=== PATIENT | male | born 1965 | race Caucasian/White ===

== ENCOUNTER 2019-04-12 12:53 | Inpatient (IN) | payer OTHER ==
[~2019-04-12 12:53] MED LIST: CEFAZOLIN 1 GM INJ; ROCURONIUM 50 MG INJ; SUCCINYLCHOLINE CHLORIDE 100 MG/5 ML SYG IV
[2019-04-12] MEDS ORDERED: SURGIFOAM POWDER 1 GM KIT (15:33)
[2019-04-12] MEDS ORDERED: GELATIN SIZE 100 SPONGE (15:34)
[2019-04-12] MEDS ORDERED: POLYMYXIN/BACITRACIN 1L IRRIG (15:34)
[2019-04-12] MEDS ORDERED: THROMBIN (BOVINE) 5,000 UNIT VIAL TP (15:34)
[2019-04-12] MEDS ORDERED: PROPOFOL 20 ML (15:51)
[2019-04-12] MEDS ORDERED: ONDANSETRON 4 MG INJ (15:51)
[2019-04-12] MEDS ORDERED: ROCURONIUM 50 MG INJ (15:51)
[2019-04-12] MEDS ORDERED: DEXAMETHASONE 4 MG/ML 5 ML INJ (15:51)
[2019-04-12] MEDS ORDERED: NEOSTIGMINE 3 MG/3 ML SYRINGE (15:51)
[2019-04-12] MEDS ORDERED: MIDAZOLAM 1 MG/ML 2 ML INJ (15:51)
[2019-04-12] MEDS ORDERED: CEFAZOLIN 1 GM INJ (15:51)
[2019-04-12] MEDS ORDERED: GLYCOPYRROLATE 0.4 MG INJ (15:51)
[2019-04-12] MEDS ORDERED: IPRATROPIUM (NEB) 0.5 MG/2.5 ML AMP HHN (16:00)
[2019-04-12] MEDS ORDERED: MEPERIDINE 25 MG INJ IV (16:00)
[2019-04-12] MEDS ORDERED: ONDANSETRON 4 MG INJ IV ×2 (16:00→21:00)
[2019-04-12] MEDS ORDERED: OXYCODONE/ACETAMINOPHEN (5/325) TAB PO ×2 (16:00)
[2019-04-12] MEDS ORDERED: DIPHENHYDRAMINE 50 MG INJ IV (16:00)
[2019-04-12] MEDS ORDERED: ALBUTEROL 0.083% (NEB) 2.5 MG/3 ML AMP HHN (16:00)
[2019-04-12] MEDS ORDERED: FENTAnyl 50 MCG/ML VIAL IV ×2 (16:00)
[2019-04-12] MEDS ORDERED: hydrALAzine 20 MG INJ IV (16:00)
[2019-04-12] MEDS ORDERED: MIDAZOLAM 1 MG/ML 2 ML INJ IV (16:00)
[2019-04-12] MEDS ORDERED: EPHEDrine 25 MG/5 ML SYG IV (16:00)
[2019-04-12] MEDS: THROMBIN 5000 UNIT VIAL TOP ×3 (16:00→20:30)
[2019-04-12] MEDS ORDERED: TRIMETHOBENZAMIDE 100 MG/ML VIAL IM (16:00)
[2019-04-12] MEDS ORDERED: HYDROmorphONE 1 MG/5 ML IV SYRINGE IV ×3 (16:00)
[2019-04-12] MEDS: BUPIVACAINE 0.5%/EPI (SDV) 30 ML INJ (17:39)
[2019-04-12] MEDS ORDERED: FENTAnyl 50 MCG/ML VIAL ×2 (19:45→21:32)
[2019-04-12] MEDS ORDERED: SUGAMMADEX SODIUM 200 MG/2 ML VIAL IV (20:53)
[2019-04-12] MEDS ORDERED: AL HYDROX/MG HYDROX/SIMETH 30 ML CUP PO (21:00)
[2019-04-12] MEDS ORDERED: HYDROCODONE/APAP (5/325) TAB PO ×2 (21:00)
[2019-04-12] MEDS ORDERED: PROCHLORPERAZINE 10 MG TAB PO (21:00)
[2019-04-12] MEDS ORDERED: NALOXONE (0.4 MG/ML) INJ IV (21:00)
[2019-04-12] MEDS ORDERED: ACETAMINOPHEN 325 MG TAB PO (21:00)
[2019-04-12] MEDS: HYDROmorphONE 0.2 MG/ML PCA IV (21:18)
[2019-04-12] MEDS: FENTAnyl 50 MCG/ML VIAL IV ×2 (21:41→21:49)
[2019-04-12] MEDS: ACETAMINOPHEN 1000MG/100ML IV 100 ML IVPB (21:41)
[2019-04-12] MEDS ORDERED: oxyCODONE (CR) 10 MG TAB [oxyCONTIN] PO (22:26)
[2019-04-12] MEDS: LIDOCAINE 5% PATCH TD (22:30)
[2019-04-12] MEDS: LABETALOL HCL 20MG INJ IV ×2 (22:31→22:52)
[2019-04-12] MEDS: oxyCODONE (CR) 10 MG TAB [oxyCONTIN] PO (22:34)
[2019-04-12] MEDS: NACL 0.9% 3 ML SYG IV (23:54)
[2019-04-13] MEDS: CEFAZOLIN 1 GM/50 ML (PMX) 50 ML IVPB ×4 (01:01→17:32)
[2019-04-13] MEDS: ACETAMINOPHEN 1000MG/100ML IV 100 ML IVPB ×2 (01:30→07:54)
[2019-04-13] MEDS: HYDROmorphONE 0.2 MG/ML PCA IV ×5 (02:27→18:53)
[2019-04-13 05:11] LABS: HEMATOCRIT 39.3 % (42.0-52.0); HEMOGLOBIN 13.3 g/dl (14.0-18.0)
[2019-04-13 05:48] LABS: ANION GAP 12 (5-13); BLOOD UREA NITROGEN 12 mg/dl (7-20); CALCIUM 8.7 mg/dl (8.4-10.2); CARBON DIOXIDE 27 mmol/L (21-31); CHLORIDE 101 mmol/L (97-110); CREATININE 0.63 mg/dl (0.61-1.24); Estimated GFR > 60 mL/min (>60); GLUCOSE 226 mg/dl (70-220); SODIUM 140 mmol/L (135-144)
[2019-04-13] MEDS ORDERED: DEXAMETHASONE 4 MG/ML 1 ML INJ IV (08:30)
[2019-04-13] MEDS ORDERED: GLUCOSE GEL 15 GRAM TUBE PO ×2 (09:00)
[2019-04-13] MEDS ORDERED: GLUCOSE GEL 15 GRAM TUBE BUCCAL (09:00)
[2019-04-13] MEDS ORDERED: GLUCAGON 1 MG INJ IM (09:00)
[2019-04-13] MEDS: LIDOCAINE 5% PATCH TD (09:00)
[2019-04-13] MEDS ORDERED: DEXTROSE 50% 50 ML SYRINGE IV ×2 (09:00)
[2019-04-13] MEDS ORDERED: oxyCODONE (CR) 10 MG TAB [oxyCONTIN] PO (09:00)
[2019-04-13] MEDS: SOD CHLORIDE 0.9% 1,000 ML IV ×2 (09:02→22:16)
[2019-04-13] MEDS: DOCUSATE SODIUM 100 MG CAP PO ×2 (09:04→20:50)
[2019-04-13] MEDS: LISINOPRIL 10 MG TAB PO (09:04)
[2019-04-13] MEDS: AMLODIPINE 5 MG TAB PO (09:04)
[2019-04-13] MEDS: oxyCODONE (CR) 10 MG TAB [oxyCONTIN] PO (09:05)
[2019-04-13] MEDS: DEXAMETHASONE 4 MG/ML 1 ML INJ IV (09:08)
[2019-04-13] MEDS: INSULIN ASPART [NOVOLOG] 3 ML PEN SC ×3 (10:12→18:59)
[2019-04-13] MEDS: CARISOPRODOL 350 MG TAB PO ×2 (16:58→22:14)
[2019-04-13] MEDS: LORAZEPAM 2 MG INJ IV (18:06)
[2019-04-13] MEDS: ATORVASTATIN 20 MG TAB PO (20:49)
[2019-04-13] MEDS: traZODone 50 MG TAB PO (20:49)
[2019-04-14] MEDS: HYDROmorphONE 0.2 MG/ML PCA IV ×5 (00:09→21:09)
[2019-04-14] MEDS: CARISOPRODOL 350 MG TAB PO ×3 (05:06→21:00)
[2019-04-14 05:22] LABS: ADD MAN DIFF? NO
[2019-04-14 05:33] LABS: WHITE BLOOD COUNT 15.9 10^3/ul (4.8-10.8)
[2019-04-14 05:33] LABS: BASOPHILS % 0.1 % (0.0-2.0); HEMATOCRIT 37.5 % (42.0-52.0); HEMOGLOBIN 12.4 g/dl (14.0-18.0); LYMPHOCYTES # 2.3 10^3/ul (0.8-2.9); LYMPHOCYTES % 14.4 % (15.0-51.0); MEAN CORPUSCULAR HEMOGLOBIN 33.5 pg (29.0-33.0); MEAN CORPUSCULAR HGB CONC 33.1 g/dl (32.0-37.0); MEAN CORPUSCULAR VOLUME 101.4 fl (82.0-101.0); MEAN PLATELET VOLUME 8.9 fl (7.4-10.4); MONOCYTE # 1.3 10^3/ul (0.3-0.9); MONOCYTES % 8.1 % (0.0-11.0); NEUTROPHIL # 12.2 10^3/ul (1.6-7.5); NEUTROPHILS % 76.9 % (39.0-77.0); PLATELET COUNT 248 10^3/UL (140-415); RED CELL DISTRIBUTION WIDTH 11.8 % (11.5-14.5)
[2019-04-14 05:43] LABS: HEMOGLOBIN A1C 5.8 % (0-5.9)
[2019-04-14 06:19] LABS: ANION GAP 11 (5-13); BLOOD UREA NITROGEN 17 mg/dl (7-20); CALCIUM 8.4 mg/dl (8.4-10.2); CARBON DIOXIDE 31 mmol/L (21-31); CHLORIDE 98 mmol/L (97-110); CREATININE 0.73 mg/dl (0.61-1.24); Estimated GFR > 60 mL/min (>60); GLUCOSE 148 mg/dl (70-220); MAGNESIUM 2.1 mg/dl (1.7-2.5); PHOSPHORUS 4.5 mg/dl (2.5-4.9); POTASSIUM 4.5 mmol/L (3.5-5.1); SODIUM 140 mmol/L (135-144)
[2019-04-14] MEDS: INSULIN ASPART [NOVOLOG] 3 ML PEN SC ×3 (07:20→18:08)
[2019-04-14] MEDS: DOCUSATE SODIUM 100 MG CAP PO ×2 (08:46→21:00)
[2019-04-14] MEDS: LISINOPRIL 10 MG TAB PO (08:47)
[2019-04-14] MEDS: AMLODIPINE 5 MG TAB PO (08:47)
[2019-04-14] MEDS: DEXAMETHASONE 10 MG/ML 1 ML INJ IV (08:48)
[2019-04-14] MEDS: SOD CHLORIDE 0.9% 1,000 ML IV (11:10)
[2019-04-14] MEDS: LIDOCAINE 5% PATCH TD (13:18)
[2019-04-14] MEDS: ATORVASTATIN 20 MG TAB PO (21:00)
[2019-04-14] MEDS: traZODone 50 MG TAB PO (22:56)
[2019-04-15] MEDS: HYDROmorphONE 0.2 MG/ML PCA IV ×4 (01:37→16:12)
[2019-04-15] MEDS: CARISOPRODOL 350 MG TAB PO ×3 (05:48→20:27)
[2019-04-15] MEDS: LIDOCAINE 5% PATCH TD ×2 (08:00→17:06)
[2019-04-15] MEDS: INSULIN ASPART [NOVOLOG] 3 ML PEN SC ×3 (08:54→18:49)
[2019-04-15] MEDS: LISINOPRIL 10 MG TAB PO (08:56)
[2019-04-15] MEDS: DOCUSATE SODIUM 100 MG CAP PO ×2 (08:56→20:27)
[2019-04-15] MEDS: AMLODIPINE 5 MG TAB PO (08:56)
[2019-04-15] MEDS ORDERED: HYDROmorphONE 0.5 MG/0.5 ML SYG IV (18:00)
[2019-04-15] MEDS: oxyCODONE (CR) 10 MG TAB [oxyCONTIN] PO (18:45)
[2019-04-15] MEDS: HYDROmorphONE 4 MG TAB PO ×2 (18:45→23:11)
[2019-04-15] MEDS: DEXAMETHASONE 10 MG/ML 1 ML INJ IV (20:27)
[2019-04-15] MEDS: ATORVASTATIN 20 MG TAB PO (20:27)
[2019-04-15] MEDS: traZODone 50 MG TAB PO (20:27)
[2019-04-15] MEDS: LORAZEPAM 0.5 MG TAB PO (23:11)
[2019-04-16] MEDS: oxyCODONE (CR) 10 MG TAB [oxyCONTIN] PO ×2 (01:23→08:28)
[2019-04-16] MEDS: HYDROmorphONE 4 MG TAB PO ×2 (04:04→08:28)
[2019-04-16] MEDS: CARISOPRODOL 350 MG TAB PO (06:34)
[2019-04-16] MEDS: DOCUSATE SODIUM 100 MG CAP PO (08:27)
[2019-04-16] MEDS: AMLODIPINE 5 MG TAB PO (08:29)
[2019-04-16] MEDS: LISINOPRIL 10 MG TAB PO (08:29)
[2019-04-16] MEDS: DEXAMETHASONE 4 MG/ML 1 ML INJ IV (08:29)
[2019-04-16 08:58] LABS: ADD MAN DIFF? NO
[2019-04-16 09:00] LABS: BASOPHILS % 0.1 % (0.0-2.0); HEMATOCRIT 38.7 % (42.0-52.0); LYMPHOCYTES # 1.8 10^3/ul (0.8-2.9); LYMPHOCYTES % 21.5 % (15.0-51.0); MEAN CORPUSCULAR HEMOGLOBIN 33.7 pg (29.0-33.0); MEAN CORPUSCULAR HGB CONC 33.6 g/dl (32.0-37.0); MEAN CORPUSCULAR VOLUME 100.3 fl (82.0-101.0); MEAN PLATELET VOLUME 8.8 fl (7.4-10.4); MONOCYTE # 0.6 10^3/ul (0.3-0.9); NEUTROPHIL # 6.1 10^3/ul (1.6-7.5); NEUTROPHILS % 71.2 % (39.0-77.0); PLATELET COUNT 259 10^3/UL (140-415); RED BLOOD COUNT 3.86 10^6/ul (4.70-6.10); RED CELL DISTRIBUTION WIDTH 11.5 % (11.5-14.5)
[2019-04-16 09:00] LABS: WHITE BLOOD COUNT 8.5 10^3/ul (4.8-10.8)
== END 2019-04-16 10:15 | disposition home or self-care (01) | DRG 473 ==
LOC: REC 12:53 → MS1 23:30
PROC: 0RG20K0 Fusion of 2 or more Cervical Vertebral Joints with Nonautologous Tissue Substitute, Anterior Approach, Anterior Column, Open Approach (ICD-10-PCS; principal; 2019-04-12 15:00)
PROC: 0RR30JZ Replacement of Cervical Vertebral Disc with Synthetic Substitute, Open Approach (ICD-10-PCS; 2019-04-12 15:00)
DX: M50.122 Cervical disc disorder at C5-C6 level with radiculopathy (principal); M48.02 Spinal stenosis, cervical region; E66.9 Obesity, unspecified; Z68.36 Body mass index [BMI] 36.0-36.9, adult; I10 Essential (primary) hypertension; E78.5 Hyperlipidemia, unspecified; Z87.891 Personal history of nicotine dependence; G89.29 Other chronic pain; E11.9 Type 2 diabetes mellitus without complications
CPT/HCPCS: 72020; 72052; 72125; 80048; 82962; 83036; 83735; 84100; 85014; 85018; 85025; 86850; 86900; 86901; 87086; 97116; 97161